=== PATIENT | female | born 1945 | race Caucasian/White ===

== ENCOUNTER 2019-12-20 13:35 | Emergency (ER) | payer OTHER ==
[~2019-12-20] VITALS: Ht 152.4 cm; Wt 62.1 kg
[~2019-12-20 13:35] MED LIST: AVAPRO150 MG PO; LOSARTAN-HCTZ1 EACH PO
[2019-12-20] MEDS ORDERED: IBANDRONATE SO150 MG (13:44)
[2019-12-20] MEDS ORDERED: ATACAND HCT 321 EAC1 (13:44)
== END 2019-12-20 20:02 | disposition home or self-care (01) ==
LOC: ER 13:35
DX: K57.30 Diverticulosis of large intestine without perforation or abscess without bleeding (principal); R10.31 Right lower quadrant pain